=== PATIENT | female | born 1950 | race African-American/Black ===

== ENCOUNTER → 2017-06-23 | Outpatient (CLI) | payer OTHER ==
--- NOTE | ~2017-06-23 | BD1 ---
[facility] A Service of [facility] & [facility] RADIOLOGY TEXT RESULTS PATIENT: SONNY BLAND LOCATION: [facility] : 50 UNIT #: [id number] AGE: [address]: Tashi Scanlon MD SEX: F ORDER DR: [id number] [address] [address] [id number] O MR#: [id number] Acc #: [id number] NAME: SONNY BLAND : 1950 SEX: F STUDY DATE/TIME: 06/23/2017 10:06 UNIT: [facility] ROOM: STUDY DESCRIPTION: Dexa Bone Dens 1+ Site Attending Physician: Tashi Scanlon M.D. Referring Physician: Tashi Scanlon M.D. Ordering Physician: Tashi Scanlon M.D. Primary Care Physician: Tashi Scanlon M.D. MEDICAL IMAGING REPORT This report is preliminary unless electronic signature is present. EXAM DXA scan 06/23/2017 HISTORY Status post menopause with no hormone replacement therapy. Osteopenia. Arthritis. Hypertension with blood pressure medication. Fracture of right foot in last 10 years. FINDINGS Bone mineral density in the lumbar spine from L1-L4 is 1.196 g/cm2 which is 0.1 standard deviations above the mean when compared to the young adult reference population which is within the range of normal. This is 0.1 standard deviations below the mean when compared to the age-matched population. Bone mineral density in the left femoral neck was 0.81 g/cm2 which is 1.6 standard deviations below the mean when compared to the young adult reference population which is characteristic of osteopenia. This is 1.8 standard deviations below the mean when compared to the age-matched population. Bone mineral density in the right femoral neck was 0.867 g/cm2 which is 1.2 standard deviations below the mean when compared to the young adult reference population which is characteristic of osteopenia. This is 1.3 standard deviations below the mean when compared to the age-matched population. IMPRESSION Bone mineral density in the lumbar spine within the range of normal and within the hips bilaterally characteristic of osteopenia. Dictated by... Jamaal R. Erasto, M.D. THIS IS AN ELECTRONICALLY VERIFIED REPORT Jamaal Maurer M.D. at 06/24/2017 7:18 AM [facility] A Service of [facility] & [facility] RADIOLOGY TEXT RESULTS PATIENT: SONNY BLAND LOCATION: [facility] : 50 UNIT #: [id number] AGE: [address]: Tashi Scanlon MD SEX: F ORDER DR: SRUTHI/rnr TD: 06/23/2017 14:09 JOB #: [id number] MEDICAL IMAGING REPORT Page 1 of 1
== END | disposition home or self-care (01) ==
LOC: SRAD 09:44
DX: M85.80 Other specified disorders of bone density and structure, unspecified site (principal); Z78.0 Asymptomatic menopausal state
CPT/HCPCS: 77080